=== PATIENT | female | born 1955 | race Caucasian/White ===

== ENCOUNTER → 2017-02-13 | Outpatient (CLI) | payer OTHER ==
[~2017-02-13] MED LIST: AMLO-110 PO; CALCTAB5 PO; CITRACEL PO; MULT-506 PO
[2017-02-13 13:05] LABS: HEMATOCRIT 45.9 % (37-47); MEAN CELL VOLUME 96.8 fL (80-100); MEAN CORPUSCULAR HEMOGLOBIN 31.6 pg (25-34); MEAN CORPUSCULAR HGB CONC 32.7 g/dl (32-36); MEAN PLATELET VOLUME 10.7 fL (7.4-10.4); PLATELET COUNT 258 K/uL (130-400); RED BLOOD COUNT 4.74 M/uL (4.2-5.4); WHITE BLOOD COUNT 7.84 K/uL (4.8-10.8)
[2017-02-13 13:22] LABS: BLOOD UREA NITROGEN 16 mg/dl (7-18); CALCIUM 9.1 mg/dl (8.5-10.1); CARBON DIOXIDE 27 mmol/L (21-32); CHLORIDE 104 mmol/L (98-107); CREATININE 0.97 mg/dl (0.60-1.20); GLUCOSE 86 mg/dl (70-99); POTASSIUM 4.2 mmol/L (3.5-5.1); SODIUM 137 mmol/L (136-145)
[2017-02-13 13:23] LABS: PHOSPHORUS 2.8 mg/dl (2.5-4.9)
[2017-02-13 13:38] LABS: URINE APPEARANCE CLEAR (CLEAR); URINE BILIRUBIN NEG (NEG); URINE COLOR YELLOW; URINE EPITHELIAL CELL AUTO 0-5 /lpf (0-5); URINE NITRITE NEG (NEG); URINE SPECIFIC GRAVITY 1.007 (1.000-1.030); UROBILINOGEN NEG (NEG)
[2017-02-13 13:39] LABS: MANUAL MICROSCOPIC REQUIRED? NO; REVIEW REQ? NO
[2017-02-13 14:09] LABS: URINE TOTAL PROTEIN < 5.0 mg/dl (0-11.9)
== END | disposition home or self-care (01) ==
LOC: C.LABMFLN 07:37
PROVIDERS: ATTEND Internal Medicine Nephrology
DX: N18.2 Chronic kidney disease, stage 2 (mild) (principal); I12.9 Hypertensive chronic kidney disease with stage 1 through stage 4 chronic kidney disease, or unspecified chronic kidney disease; E78.5 Hyperlipidemia, unspecified; I73.9 Peripheral vascular disease, unspecified; E55.9 Vitamin D deficiency, unspecified

== ENCOUNTER → 2017-09-23 | Outpatient (CLI) | payer OTHER ==
[2017-09-23 12:16] LABS: HEMATOCRIT 43.8 % (37-47); HEMOGLOBIN 15.4 g/dL (12.0-16.0); MEAN CELL VOLUME 98.6 fL (80-100); MEAN CORPUSCULAR HEMOGLOBIN 34.7 pg (25-34); MEAN CORPUSCULAR HGB CONC 35.2 g/dl (32-36); MEAN PLATELET VOLUME 10.8 fL (7.4-10.4); PLATELET COUNT 230 K/uL (130-400); RED CELL DISTRIBUTION WIDTH CV 13.4 % (11.5-14.5); RED CELL DISTRIBUTION WIDTH SD 47.9 fL (36.4-46.3); WHITE BLOOD COUNT 5.87 K/uL (4.8-10.8)
[2017-09-23 13:27] LABS: ALBUMIN 3.9 gm/dl (3.4-5.0); BLOOD UREA NITROGEN 16 mg/dl (7-18); CALCIUM 9.1 mg/dl (8.5-10.1); CARBON DIOXIDE 26 mmol/L (21-32); CREATININE 0.89 mg/dl (0.60-1.20); GLUCOSE 87 mg/dl (70-99); PHOSPHORUS 2.8 mg/dl (2.5-4.9); POTASSIUM 3.9 mmol/L (3.5-5.1); SODIUM 135 mmol/L (136-145)
== END | disposition home or self-care (01) ==
LOC: C.LABMFLN 08:00
PROVIDERS: ATTEND Internal Medicine Nephrology
DX: I12.9 Hypertensive chronic kidney disease with stage 1 through stage 4 chronic kidney disease, or unspecified chronic kidney disease (principal); N18.2 Chronic kidney disease, stage 2 (mild); I73.9 Peripheral vascular disease, unspecified; E55.9 Vitamin D deficiency, unspecified

== ENCOUNTER → 2018-03-28 | Outpatient (CLI) | payer OTHER ==
[~2018-03-28] MED LIST changes: -AMLO-110 PO; +AMLO5TAB3 PO
[2018-03-28 13:34] LABS: HEMATOCRIT 44.4 % (37-47); MEAN CELL VOLUME 97.6 fL (80-100); MEAN CORPUSCULAR HGB CONC 33.8 g/dl (32-36); MEAN PLATELET VOLUME 11.3 fL (7.4-10.4); PLATELET COUNT 234 K/uL (130-400); RED CELL DISTRIBUTION WIDTH CV 13.4 % (11.5-14.5); RED CELL DISTRIBUTION WIDTH SD 47.6 fL (36.4-46.3)
[2018-03-28 14:01] LABS: ALKALINE PHOSPHATASE 69 U/L (45-117); ALT/SGPT 23 U/L (12-78); AST/SGOT 21 U/L (15-37); BLOOD UREA NITROGEN 14 mg/dl (7-18); CALCIUM 9.1 mg/dl (8.5-10.1); CARBON DIOXIDE 25 mmol/L (21-32); CHOLESTEROL 153 mg/dl (0-200); CREATININE 0.94 mg/dl (0.60-1.20); GLUCOSE 93 mg/dl (70-99); LDL CHOLESTEROL CALCULATED 89 mg/dl; POTASSIUM 4.1 mmol/L (3.5-5.1); SODIUM 134 mmol/L (136-145); TOTAL PROTEIN 8.1 gm/dl (6.4-8.2)
== END | disposition home or self-care (01) ==
LOC: C.LABMFLN 09:02
PROVIDERS: ATTEND Internal Medicine Nephrology
DX: I12.9 Hypertensive chronic kidney disease with stage 1 through stage 4 chronic kidney disease, or unspecified chronic kidney disease (principal); I73.9 Peripheral vascular disease, unspecified; N18.2 Chronic kidney disease, stage 2 (mild); E55.9 Vitamin D deficiency, unspecified; E78.5 Hyperlipidemia, unspecified

== ENCOUNTER 2020-07-13 06:12 | Inpatient (IN) ==
--- NOTE | 2020-07-04 14:41 | PAT Medication Instructions ---
Medication Instructions Date of Service July 04, 2020 Home Medications diphenhydramine 25 mg-acetaminophen 500 mg tablet 2 tab PO HS amlodipine 10 mg PO QAM calcium carbonate [Calcium 600] 600 mg PO QAM multivitamin [Daily Multi-Vitamin] 1 tab PO QAM polyethylene glycol 3350 17 gm PO DAILY PRN simvastatin 20 mg PO PM DO NOT take the morning of surgery calcium carbonate [Calcium 600] 600 mg PO QAM multivitamin [Daily Multi-Vitamin] 1 tab PO QAM polyethylene glycol 3350 17 gm PO DAILY PRN Take morning of surgery With a small sip of water, OTHERWISE NOTHING TO EAT OR DRINK AFTER MIDNIGHT: amlodipine 10 mg PO QAM Take evening before surgery diphenhydramine 25 mg-acetaminophen 500 mg tablet 2 tab PO HS polyethylene glycol 3350 17 gm PO DAILY PRN (if needed) simvastatin 20 mg PO PM Other Notes If you have any questions please call us at [phone] or [phone] or [phone] or [phone]
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
[2020-07-06 10:36] LABS: Basophils # (auto) 0.03 K/uL (0-0.2); Basophils % (auto) 0.4 %; Eosinophils # (auto) 0.15 K/uL (0-0.5); Eosinophils % (auto) 2.2 %; Hematocrit (blood only) 42.9 % (37-47); Hemoglobin 14.4 g/dL (12.0-16.0); Immature Granulocytes # (auto) 0.01 K/uL (0.00-0.02); Immature Granulocytes % (auto) 0.1 %; Lymphocytes # (auto) 1.27 K/uL (1.2-3.4); Lymphocytes % (auto) 18.8 %; Mean Corpuscular Hemoglobin 33.3 pg (25-34); Mean Corpuscular Hgb Conc 33.6 g/dL (32-36); Mean Corpuscular Volume 99.1 fL (80-100); Mean Platelet Volume 10.6 fL (7.4-10.4); Monocytes # (auto) 0.35 K/uL (0.11-0.59); Monocytes % (auto) 5.2 %; Neutrophils # (auto) 4.94 K/uL (1.4-6.5); Neutrophils % (auto) 73.3 %; Platelet Count 282 K/uL (130-400); RDW Coefficient of Variation 13.6 % (11.5-14.5); RDW Standard Deviation 49.1 fL (36.4-46.3); Red Blood Count 4.33 M/uL (4.2-5.4); White Blood Count 6.75 K/uL (4.8-10.8)
[2020-07-06 10:44] LABS: BUN Creatinine Ratio 13.2 (10-20); Calcium 9.2 mg/dl (8.5-10.1); Creatinine Clr Calc Pharmacy 59.1 ml/min; Est GFR (African American) 70.3; Est GFR (Non-African American) 60.6; Potassium 4.1 mmol/L (3.5-5.1)
[2020-07-06 10:49] LABS: Partial Thromboplastin Time 26.8 Seconds (21.0-31.0); Prothrombin Time 10.8 Seconds (9.0-12.0)
--- NOTE | 2020-07-06 21:32 | Electrocardiogram Report ---
Test Reason : Blood Pressure : / mmHG Vent. Rate : 084 BPM Atrial Rate : 084 BPM P-R Int : 150 ms QRS Dur : 126 ms QT Int : 404 ms P-R-T Axes : 082 051 046 degrees QTc Int : 477 ms Normal sinus rhythm Right atrial enlargement Right bundle branch block Abnormal ECG When compared with ECG of 20-MAR-2011 10:19, QT has lengthened Confirmed by Cr Lama ([id number]) on 07/06/2020 9:32:15 PM Referred By: Lee Gramajo Confirmed By:Cr Lama
[~2020-07-13 06:12] MED LIST changes: -AMLO5TAB3 PO; -CALCTAB5 PO; -CITRACEL PO; -MULT-506 PO; +SODIUM CHLORIDE 0.9% 1000ML IV SCH; +ceFAZolin 1000MG 1,000 MG/7.5 ML SYR IV SCH
[2020-07-13] MEDS ORDERED: ATROPINE SULFATE 0.1 MG/ML 10ML SYR IV PRN (07:01)
[2020-07-13] MEDS ORDERED: ONDANSETRON INJ 2 MG/ML 2 ML VIAL IV PRN ×2 (07:01→09:50)
[2020-07-13] MEDS ORDERED: ePHEDrine sulfate 50 MG/ML AMP IV PRN (07:01)
[2020-07-13] MEDS ORDERED: MIDAZOLAM HCL 1 MG/ML 2ML VIAL ONE (07:10)
[2020-07-13] MEDS ORDERED: fentaNYL citrate 100 MCG/2 ML VIAL ONE ×5 (07:10→11:47)
[2020-07-13 07:56] LABS: BUN Creatinine Ratio 15.5 (10-20); Calcium 9.6 mg/dl (8.5-10.1); Creatinine Clr Calc Pharmacy 50.2 ml/min; Est GFR (African American) 70.3; Est GFR (Non-African American) 60.6; Potassium 3.9 mmol/L (3.5-5.1)
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
[2020-07-13] MEDS ORDERED: LIDOCAINE HCL 2% 2 ML VIAL/AMP(20MG/ML) INFIL ONE (08:17)
[2020-07-13] MEDS ORDERED: PROPOFOL IV EMULSION 10 MG/ML 20 ML VIAL IV ONE (08:55)
[2020-07-13] MEDS ORDERED: ROCURONIUM BROMIDE 10 MG/ML 5 ML VIAL IV ONE (08:55)
[2020-07-13] MEDS ORDERED: ePHEDrine sulfate 50 MG/ML SYR ONE (08:55)
[2020-07-13] MEDS ORDERED: ONDANSETRON INJ 2 MG/ML 2 ML VIAL ONE (08:55)
[2020-07-13] MEDS ORDERED: LARYING-O-JET KIT (LTA) ONE (08:55)
[2020-07-13] MEDS ORDERED: HEPARIN SOD (PORCINE) 1000 UNIT/ML 10 ML VIAL ONE ×2 (08:58→11:17)
[2020-07-13] MEDS ORDERED: PROTAMINE SULFATE 10 MG/ML 5 ML VIAL ONE (09:40)
[2020-07-13] MEDS ORDERED: ARISTA ABSORBABLE HEMOSTAT 3GM TOP ONE (09:47)
[2020-07-13] MEDS ORDERED: VISIPAQUE IV PRN (09:47)
[2020-07-13] MEDS ORDERED: GLYCOPYRROLATE 0.2 MG/ML VIAL ONE (09:49)
[2020-07-13] MEDS ORDERED: NEOSTIGMINE METHYLSULFATE 5 MG/5 ML SYR ONE (09:49)
[2020-07-13] MEDS ORDERED: MoRPHine SULFATE 4 MG/ML 1 ML CARP\\VIAL IV PRN (09:50)
[2020-07-13] MEDS ORDERED: THROMBIN 5000 UNITS KIT ONE ×2 (10:03→10:14)
[2020-07-13] MEDS ORDERED: HEPARIN (PORCINE) 1000 UNIT/ML 10 ML (CATH LAB USE ONLY) ONE (10:03)
[2020-07-13] MEDS ORDERED: GELATIN SPONGE SZ 100 ONE (10:03)
[2020-07-13] MEDS ORDERED: POLYETHYLENE (MIRALAX) 17 GM PACK PO PRN (10:04)
[2020-07-13] MEDS ORDERED: VISIPAQUE IV ONE (11:40)
--- NOTE | 2020-07-13 12:00 | Procedure Note ---
Angiogram Post Procedure Fluoroscopy Time (minutes): 10.5 Conscious Sedation Time (minutes): 0 Radiation (mGy): 231 Contrast: 195 Post Operative Report Pre & Post Diagnosis Operation Date: 07/13/20 08:00 Pre-Op Diagnosis: abdominal aortic aneurysm Post-Op Diagnosis: abdominal aortic aneurysm I identified the patient and participated in the time-out.: Yes Procedure Operation Date: 07/13/20 08:00 Actual Procedures p Percutaneous Endovascular Aortic Aneurysm Repair, Bilateral Percutaneous Femoral Access, Mechanical Closure Bilateral Femoral Arteries(Bilateral) - Lee Gramajo MD s Right Fermoral Artery Cut Down, Right Common and Superficial Femoral Endarterectomy with Bovine Patch, Right Lower Extremity Arteriogram, Percutaneous Transluminal Angioplasty and Stenting of right Superficial Femoral Artery(Right) - Lee Gramajo MD Surgeon Lee Gramajo MD Train Gateman Robinson,PAC Estimated Blood Loss 200 Findings Consistent with Post-Op Diagnosis Specimens none Anesthesia Type General Complications none Indications This is a 64-year-old female who we have been following for abdominal aortic aneurysm. The aneurysm enlarged to over 5 [address] size[address] On [address] scan was 5.3 cm. She has a lung CA which needs to be treated. It was elected to do the aneurysm first. She was a candidate for an endovascular repair. I have discussed the risks options and benefits of the procedure with the patient. The patient understands the risks options and benefits and agrees to the procedure. Description of Procedure The patient was taken to the operating room. After general anesthesia was accomplished, the abdomen and groins were prepped and draped in the usual fashion. A timeout was performed and the patient identified. Percutaneous access of the femoral arteries was then accomplished. The right groin was done first. The femoral artery was punctured and a 5Fr sheath inserted. Hand injec tion was then done to determine the position of the puncture. The puncture was in the common femoral artery. We therefore placed two ProGlide sutures and steri stripped them to the drapes. Once done an 8Fr sheath was then inserted. On the left side, the femoral artery was punctured and a 5Fr sheath inserted. Hand injection was then done to determine the position of the puncture. The puncture was in the common femoral artery. We therefore placed two ProGlide sutures and steri stripped them to the drapes. Once done an 8Fr sheath was then inserted. An 035 glidewire was then inserted and passed into the suprarenal aorta. A Kumpe catheter was then inserted of the wire and the wire exchanged to a Emely wire. Patient was heparinized at that time. The catheter was removed and the 8Fr sheath upsized to a 12Fr dry seal sheath. On the right side, an 035 glidewire was then inserted and passed into the suprarenal aorta. A Kumpe catheter was then inserted of the wire and the wire exchanged to a Maya wire. The catheter was removed and the 8Fr sheath upsized to an 18Fr dry seal sheath. A pigtail was inserted to the suprarenal aorta on the left side and the wire removed. A 28.5x14.5x14 excluder was inserted over the wire in the right groin. An aortogram was then done marking the renal arteries. The graft was then deployed below the renals. Another injection was done showing the graft to be just below the renals. The pigtail was pulled down into the sac and the hooks of the graft were then deployed. The pigtail was exchanged to a Kumpe catheter and the gate was cannulated. The pigtail was reinserted and the 12Fr sheath pulled down into the pelvis. Hand injection showed the origin of the internal iliac artery. It was decided we would use a 16x14.5x10 contralateral limb. The Maya wire was reinserted as well as the 12Fr dilator. This sheath was then advanced into the gate. These 16 x 14.5 x 10 contralateral limb was then inserted. The 12 Luxembourger sheath was pulled back below the contralateral limb. The contralateral limb was deployed without difficulty. The 18Fr sheath was then pulled down into the pelvis and a hand injection done to carrillo the origin of the right internal iliac artery. The ipsilateral limb was then deployed without difficulty pushing up slightly to get the end of the graft just above the internal iliac artery origin. The Q50 balloon was then inserted on the left side and all attachment sites and overlaps were then ballooned. The balloon was then removed and the same done on the right. The pigtail was reinserted on the left side and placed above the graft. An injection was then done. There was a small type II endoleak present. No type I endoleak's were noted. At this point the Maya wire was reinserted and the pigtail removed. We then pulled the 12Fr sheath and secured the ProGlide sutures. Adequate hemostasis was seen. We then pulled the 18Fr sheath and secured the ProGlide sutures. Adequate hemostasis was noted on this side also. Wallace powder was inserted into the stab wounds and pressure applied. Adequate hemostasis was still noted. Sterile dressings were applied to the wounds. Once the drapes were removed it was noted that the right foot was pale. Cannot hear any Doppler signals in the foot. It was decided to open the right groin to explore the artery. The right groin was reprepped and draped in a sterile manner. Patient was identified and timeout was performed. Incision was then made in the right groin longitudinally. The common femoral artery was exposed from the inguinal ligament down to the profunda and approximately 5 cm onto the superficial femoral artery. There was no pulse felt in the common femoral artery beyond the proximal portion. Patient was reheparinized at that time. The common femoral area was clamped at the level inguinal ligament. Fistula profundofemoral arteries were also clamped. Longitudinal arteriotomy was started at the puncture site. It was carried upward and downward on the common femoral artery. On inspection there was a moderate amount of hyperplasia present in the common femoral artery. It appeared that the flap had developed in the subintimal hematoma was created causing occlusion of the femoral artery. The hyperplasia was then excised in that area removing the hematoma. The artery was clamped slightly higher under the inguinal ligament. The arteriotomy was extended upward to beyond where the hyperplasia was present. Hyperplasia was then endarterectomized down through the proximal superficial femoral artery. Good inflow was seen. Good backbleeding was noted in the profundofemoral artery We attempted to pass a Juan down the superficial femoral artery. This would not pass further than a couple centimeters downward. It was decided to patch the common femoral artery proximal superficial femoral artery and into an arteriogram to see what the occlusion was caused by. Using a bovine patch and angioplasty was performed of the common femoral artery and proximal superficial femoral artery. This was sewn in place with a 6-0 Prolene suture. Clamps were then removed. There is excellent flow through the profunda. There is no appreciable flow noted through the distal superficial femoral artery. Using entrance needle the bovine patch was punctured just below the profundofemoral artery origin and a 5 Luxembourger sheath inserted. Hand-injection done at that level showed occlusion of the superficial femoral artery just beyond the patch. It reconstituted just above the adductor hiatus. We then passed an 035 wire down through the sheath at the superficial femoral artery. It appeared to reenter the superficial femoral artery at the adductor hiatus. A quick cross was inserted over the wire. This was passed down just below the adductor hiatus. Hand-injection done at that level showed the catheter to be true lumen. It was decided to stent this lesion due to the hyperplasia in the subintimal flap that developed. We switched to a 035 wire to an 018 wire and then remove the quick cross. We then switched out the 5 Luxembourger sheath a 6 Luxembourger sheath. We then inserted a 6 x 15 Viabahn stent. We deployed it just distal to the end of the bovine patch and extended downward. At this was done another hand-injection was performed which still showed a suspicious area of flap and narrowing just above the adductor hiatus. We then extended the Viabahn with a 6 x 10 Viabahn to cover this area. The stent was then ballooned with a 6 x 120 [place] balloon. Completion angios done at that time showed excellent flow through the superficial femoral artery with no residual stenosis and no flaps noted. Sheath and wire were then removed. The puncture site was closed with a interrupted 6-0 Prolene sutures. Adequate hemostasis was noted the groin was then closed with a running 2-0 Vicryl suture for the femoral sheath and a 3-0 Vicryl suture for subcutaneous layer. Tito were used to approximate the skin edges. Sterile dressings were applied to the wounds.The patient left the operation room in satisfactory condition and tolerated the procedure well. All needle and sponge counts were correct at the end of the procedure. Alyce Stark Pac assisted due to lack of resident availability and was necessary for positioning, draping, retraction, wound closure deep layers, subcutaneous tissue, and skin closure and was necessary for assisting with the case. I attest to the content of the Intraoperative Record and any orders documented therein. Any exceptions are noted below.
--- NOTE | 2020-07-13 12:19 | Anesthesiology Progress Note ---
Date of Service July 13, 2020 Anesthesia Post Procedure Vital Signs Vital Signs: Temp Pulse Resp BP BP Pulse Ox 07/13/20 06:55 98.1 F 96 H 20 136/81 136/70 94 Transfer of Care Handoff Completed per policy Notes Mental Status: alert / awake / arousable and participated in evaluation Patient Amnestic to Procedure: Yes Nausea / Vomiting: adequately controlled Pain: adequately controlled Airway Patency, RR, SpO2: stable & adequate BP & HR: stable & adequate Hydration State: stable & adequate Anesthetic Complications: no major complications apparent and Pt Satisfied with anesthetic care
[2020-07-13] MEDS: fentaNYL citrate 100 MCG/2 ML VIAL IV PRN ×4 (12:31→12:46)
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
[2020-07-13 14:23] LABS: Basophils # (auto) 0.02 K/uL (0-0.2); Basophils % (auto) 0.2 %; Eosinophils # (auto) 0.04 K/uL (0-0.5); Eosinophils % (auto) 0.3 %; Hematocrit (blood only) 37.2 % (37-47); Hemoglobin 12.3 g/dL (12.0-16.0); Immature Granulocytes # (auto) 0.02 K/uL (0.00-0.02); Immature Granulocytes % (auto) 0.2 %; Lymphocytes # (auto) 0.78 K/uL (1.2-3.4); Lymphocytes % (auto) 6.7 %; Mean Corpuscular Hemoglobin 32.8 pg (25-34); Mean Corpuscular Volume 99.2 fL (80-100); Mean Platelet Volume 9.5 fL (7.4-10.4); Monocytes # (auto) 0.65 K/uL (0.11-0.59); Monocytes % (auto) 5.6 %; Neutrophils # (auto) 10.05 K/uL (1.4-6.5); Platelet Count 227 K/uL (130-400); RDW Coefficient of Variation 13.7 % (11.5-14.5); RDW Standard Deviation 49.8 fL (36.4-46.3); Red Blood Count 3.75 M/uL (4.2-5.4); White Blood Count 11.56 K/uL (4.8-10.8)
[2020-07-13] MEDS: D5W AND 1/2NSS 1,000 ML IV SCH ×2 (14:28→21:53)
[2020-07-13 14:37] LABS: Calcium 8.5 mg/dl (8.5-10.1); Creatinine Clr Calc Pharmacy 45.6 ml/min; Est GFR (African American) 62.6; Potassium 3.9 mmol/L (3.5-5.1)
[2020-07-13 14:43] LABS: Mean Corpuscular Hgb Conc 33.1 g/dL (32-36)
[2020-07-13] MEDS: PANTOprazole 40 MG in SYRINGE 0 ML IV SCH (17:22)
[2020-07-13] MEDS: ceFAZolin 1000MG 1,000 MG/7.5 ML SYR IV SCH (20:27)
[2020-07-13] MEDS: SIMVASTATIN 20 MG TAB PO SCH (20:29)
[2020-07-13] MEDS: diphenhydrAMINE Capsule 25 MG CAP PO SCH (20:29)
[2020-07-13] MEDS ORDERED: ACETAMINOPHEN 500 MG TAB PO SCH (21:00)
[2020-07-13] MEDS ORDERED: DIPHENHYDRAMINE ACETAMINOPHEN PO SCH (21:00)
[2020-07-14] MEDS: ceFAZolin 1000MG 1,000 MG/7.5 ML SYR IV SCH (03:27)
[2020-07-14] MEDS: oxyCODONE/ACETAMINOPHEN 5mg/325mg TAB PO PRN ×3 (03:39→23:52)
[2020-07-14 05:07] LABS: Basophils # (auto) 0.01 K/uL (0-0.2); Basophils % (auto) 0.1 %; Eosinophils # (auto) 0.07 K/uL (0-0.5); Eosinophils % (auto) 0.9 %; Hematocrit (blood only) 32.2 % (37-47); Hemoglobin 10.8 g/dL (12.0-16.0); Immature Granulocytes # (auto) 0.01 K/uL (0.00-0.02); Immature Granulocytes % (auto) 0.1 %; Lymphocytes # (auto) 0.72 K/uL (1.2-3.4); Lymphocytes % (auto) 8.9 %; Mean Corpuscular Hemoglobin 33.2 pg (25-34); Mean Corpuscular Hgb Conc 33.5 g/dL (32-36); Mean Corpuscular Volume 99.1 fL (80-100); Mean Platelet Volume 9.6 fL (7.4-10.4); Monocytes # (auto) 0.73 K/uL (0.11-0.59); Neutrophils # (auto) 6.57 K/uL (1.4-6.5); Platelet Count 195 K/uL (130-400); RDW Coefficient of Variation 13.6 % (11.5-14.5); RDW Standard Deviation 49.7 fL (36.4-46.3); Red Blood Count 3.25 M/uL (4.2-5.4); White Blood Count 8.11 K/uL (4.8-10.8)
[2020-07-14] MEDS: D5W AND 1/2NSS 1,000 ML IV SCH (05:56)
[2020-07-14] MEDS: POTASSIUM CHLORIDE / WTR 10 MEQ/100 ML PLCT IV SCH ×3 (06:17→23:24)
[2020-07-14] MEDS: MULTIVITAMIN TAB PO SCH (07:37)
[2020-07-14] MEDS: CALCIUM CARBONATE 1250MG TAB PO SCH (07:37)
[2020-07-14] MEDS: amLODIPine BESYLATE 5 MG TAB PO SCH (07:37)
[2020-07-14 07:42] LABS: Potassium 3.9 mmol/L (3.5-5.1)
[2020-07-14 07:44] LABS: Anion Gap 3.7 (3-11)
[2020-07-14 07:46] LABS: Est GFR (Non-African American) 62.2
[2020-07-14 07:47] LABS: BUN Creatinine Ratio 8.6 (10-20); Creatinine Clr Calc Pharmacy 51.3 ml/min
[2020-07-14 07:48] LABS: Calcium 8.1 mg/dl (8.5-10.1)
[2020-07-14] MEDS ORDERED: Nursing to Pharmacy Communication SCH (09:30)
--- NOTE | 2020-07-14 10:00 | Critical Care Progress Note ---
Date of Service July 14, 2020 Assessment & Plan (1) AAA (abdominal aortic aneurysm) without rupture: She is postop endovascular aneurysm repair. Blood pressure goals and pain management per vascular surgery. Peripheral pulses appear intact. ICU team is available should the need arise and we appreciate the ability to be able to participate in the care of this patient. She does have a history of biopsy- proven left upper lobe lung cancer and apparently is going to undergo a mediastinoscopy and left upper lobectomy in the near future by thoracic surgery at at [facility]. Complete smoking cessation is advised. May need PT/OT. Disp per vascular surgery. (2) Cavitating mass in left upper lung lobe: (3) Non-small cell cancer of left lung: (4) Chronic kidney disease, stage 3: (5) Renal artery stenosis: Admission and Anticipated Discharge Date Admission Date: July 13, 2020 Subjective Mild right foot pain. Somewhat unsteady on her feet. Mild abdominal discomfort. Denies chest pain. No n/v. Review of Systems Review of Systems: All systems reviewed & are unremarkable except as noted in HPI & below Physical Exam Constitutional: WD/WN, vitals as above Eyes: PERRL, conjunctivae normal, anicteric sclerae ENMT: external ear and nose normal, oropharynx normal Neck: trachea midline, no thyromegaly Respiratory: normal respiratory effort, lungs clear to auscultation Cardiovascular: RRR, no murmur, no edema Vessels: dorsalis pedis pulses present Gastrointestinal (Abdomen): normal bowel sounds, soft, nontender, no hepatosplenomegaly Musculoskeletal: no cyanosis or clubbing, extremities motor strength 5/5 Skin: no rashes, warm and dry Neurologic: PERRL, EOMI, accommodation nl, no face palsy, no dysarthria Psychiatric: A+Ox3, euthymic affect Results & Data Results & Data ([facility]) Vital Signs (Past 12 Hours) Vital Signs Temp Pulse Resp BP Pulse Ox 07/14/20 09:01 105 H 23 167/71 H 93 07/14/20 08:01 88 18 94 07/14/20 08:00 98.6 F 90 23 142/69 H 94 07/14/20 07:01 88 19 93 07/14/20 07:00 89 18 129/81 93 07/14/20 06:00 70 16 139/55 L 97 07/14/20 05:30 79 19 97 07/14/20 05:00 72 16 134/50 L 95 07/14/20 04:30 72 17 95 07/14/20 04:00 98.6 F 83 12 148/63 H 96 07/14/20 03:30 86 17 98 07/14/20 03:00 76 16 134/54 L 96 07/14/20 02:30 75 19 97 07/14/20 02:00 76 15 146/51 H 97 07/14/20 01:31 73 15 97 07/14/20 01:00 74 16 128/55 L 97 07/14/20 00:00 98.6 F 78 21 122/57 L 98 07/13/20 23:00 77 17 131/66 99 07/13/20 22:30 75 18 100 07/13/20 22:02 72 15 99 07/13/20 22:00 73 16 142/66 H 100 I reviewed vital signs, labs and imaging Coding Level of Care Code 44864 Subseq Hosp Care Lvl 2 Diagnoses AAA (abdominal aortic aneurysm) without rupture I71.4 Cavitating mass in left upper lung lobe J98.4 Non-small cell cancer of left lung C34.92 Chronic kidney disease, stage 3 N18.3 Renal artery stenosis I70.1
--- NOTE | 2020-07-14 13:38 | Surgery Progress Note ---
Date of Service July 14, 2020 Assessment & Plan (1) Hx of endovascular stent graft for abdominal aortic aneurysm: Patient post op day #1 from PEVAR. Doing well. Will transfer to floor. Admission and Anticipated Discharge Date Admission Date: July 13, 2020 Subjective Patient complaining of right groin and thigh pain. No foot pain. Physical Exam Constitutional: WD/WN, vitals as above Respiratory: normal respiratory effort; no respiratory distress Cardiovascular: Vessels: dorsalis pedis pulses present (palpable both feet) Extremities: normal capillary refill Skin: + incision (dressing dry and intact, no swelling present) Neurologic: moves all extremities; no focal motor deficits Results & Data ([facility]) Vital Signs (Past 12 Hours) Vital Signs Temp Pulse Resp BP Pulse Ox 07/14/20 11:00 36.8 C 79 12 153/55 H 95 07/14/20 10:02 108 H 28 H 194/64 H 95 07/14/20 10:00 98 H 23 95 07/14/20 09:01 105 H 23 167/71 H 93 07/14/20 08:01 88 18 94 07/14/20 08:00 37 C 90 23 142/69 H 94 07/14/20 07:01 88 19 93 07/14/20 07:00 89 18 129/81 93 07/14/20 06:00 70 16 139/55 L 97 07/14/20 05:30 79 19 97 07/14/20 05:00 72 16 134/50 L 95 07/14/20 04:30 72 17 95 07/14/20 04:00 37 C 83 12 148/63 H 96 07/14/20 03:30 86 17 98 07/14/20 03:00 76 16 134/54 L 96 07/14/20 02:30 75 19 97 07/14/20 02:00 76 15 146/51 H 97
[2020-07-14] MEDS: PANTOprazole 40 MG in SYRINGE 0 ML IV SCH (13:53)
[2020-07-14] MEDS: diphenhydrAMINE Capsule 25 MG CAP PO SCH (20:58)
[2020-07-14] MEDS: SIMVASTATIN 20 MG TAB PO SCH (20:58)
[2020-07-15] MEDS: oxyCODONE/ACETAMINOPHEN 5mg/325mg TAB PO PRN ×2 (05:34→10:33)
[2020-07-15 07:16] LABS: Basophils # (auto) 0.02 K/uL (0-0.2); Basophils % (auto) 0.2 %; Eosinophils # (auto) 0.13 K/uL (0-0.5); Eosinophils % (auto) 1.4 %; Hematocrit (blood only) 30.4 % (37-47); Hemoglobin 10.3 g/dL (12.0-16.0); Immature Granulocytes # (auto) 0.02 K/uL (0.00-0.02); Immature Granulocytes % (auto) 0.2 %; Lymphocytes # (auto) 0.95 K/uL (1.2-3.4); Lymphocytes % (auto) 10.2 %; Mean Corpuscular Hemoglobin 33.1 pg (25-34); Mean Corpuscular Hgb Conc 33.9 g/dL (32-36); Mean Corpuscular Volume 97.7 fL (80-100); Mean Platelet Volume 9.3 fL (7.4-10.4); Monocytes # (auto) 1.04 K/uL (0.11-0.59); Monocytes % (auto) 11.2 %; Neutrophils # (auto) 7.13 K/uL (1.4-6.5); Neutrophils % (auto) 76.8 %; Platelet Count 170 K/uL (130-400); RDW Coefficient of Variation 13.5 % (11.5-14.5); RDW Standard Deviation 48.2 fL (36.4-46.3); Red Blood Count 3.11 M/uL (4.2-5.4); White Blood Count 9.29 K/uL (4.8-10.8)
[2020-07-15 07:52] LABS: BUN Creatinine Ratio 11.1 (10-20); Calcium 8.5 mg/dl (8.5-10.1); Creatinine Clr Calc Pharmacy 52.3 ml/min; Est GFR (African American) 73.9; Est GFR (Non-African American) 63.7
[2020-07-15] MEDS: MULTIVITAMIN TAB PO SCH (08:36)
[2020-07-15] MEDS: CALCIUM CARBONATE 1250MG TAB PO SCH (08:36)
[2020-07-15] MEDS: amLODIPine BESYLATE 5 MG TAB PO SCH (08:37)
--- NOTE | 2020-07-15 09:35 | Surgery Progress Note ---
Date of Service July 15, 2020 Assessment & Plan (1) Hx of endovascular stent graft for abdominal aortic aneurysm: Patient post op day #2 from PEVAR. Doing well. Pt discussed with Dr Gramajo, will d/c home today. Admission and Anticipated Discharge Date Admission Date: July 13, 2020 Subjective 64 yo f POD #2 after PEVAR and subsequent R groin cutdown d/t acute arterial occlusion of RLE with common femoral endarterectomy with bovine patch and stenting of SFA, seen in f/u today. Pt states feeling ok today. Admits R groin discomfort, but states much better with pain meds. Ambulating in room more today, groin is sore, but she feels stable. Passing flatus. Denies any other new complaints. Review of Systems Review of Systems: All systems reviewed & are unremarkable except as noted in HPI & below Physical Exam Constitutional: WD/WN, vitals as above Neck: trachea midline Respiratory: normal respiratory effort; no respiratory distress Cardiovascular: Rate/Rhythm: regular rate and regular rhythm Vessels: normal peripheral pulses and dorsalis pedis pulses present (palpable both feet); no carotid bruit Extremities: normal capillary refill Gastrointestinal (Abdomen): Inspection/Auscultation: abdomen normal to inspection Percussion/Palpation: abdomen soft; abdomen nontender Musculoskeletal: no cyanosis or clubbing, extremities motor strength 5/5 Skin: no rashes, warm and dry + incision (dressing dry and intact, no swelling present) Neurologic: patellar DTR's 2+ bilat, sensation intact and PERRL, EOMI, accommodation nl, no face palsy, no dysarthria moves all extremities; no focal motor deficits Psychiatric: A+Ox3, euthymic affect Results & Data ([facility]) Vital Signs (Past 12 Hours) Vital Signs Temp Pulse Pulse Resp BP BP Pulse Ox 07/15/20 08:33 78 156/81 H 07/15/20 08:05 37.3 C 07/15/20 07:38 37.6 C H 87 16 145/77 H 96 07/14/20 23:05 37.5 C 93 H 19 130/69 94
--- NOTE | 2020-07-15 09:39 | Discharge Summary ---
Date of Service July 15, 2020 Admission HPI Per Admitting Provider Camryn was seen for follow-up of her abdominal aortic aneurysm and renal artery stents. She did say today that she has been diagnosed as having a left upper lobe lung carcinoma which is being worked up at this time. We have been seeing her for abdominal aortic aneurysm over the last few years. At her last visit has grown slightly in size to 4.6. She did have an ultrasound done prior to this visit which shows aneurysm to have grown to 5.3 cm in size. It is slightly over [address] size on CT angiogram but is amenable to endovascular repair. Denies any claudication. Due to size of her AAA, recommended PEVAR. Risks, benefits, and alternatives were discussed with pt. Pt was agreeable to proceed. Admission Exam Per Admitting Provider Constitutional: WD/WN, vitals as above Neck: trachea midline Cardiovascular: Rate/Rhythm: regular rate and regular rhythm Vessels: normal peripheral pulses; no carotid bruit Extremities: normal capillary refill Gastrointestinal (Abdomen): Inspection/Auscultation: abdomen normal to inspection Percussion/Palpation: abdomen soft; abdomen nontender Musculoskeletal: no cyanosis or clubbing, extremities motor strength 5/5 Skin: no rashes, warm and dry Neurologic: patellar DTR's 2+ bilat, sensation intact and PERRL, EOMI, accommodation nl, no face palsy, no dysarthria Psychiatric: A+Ox3, euthymic affect Principal Diagnosis 1. s/p PEVAR 2. s/p R common femoral and SFA endarterectomy with bovine patch and RLE angio with stenting of SFA 3. AAA Discharge Exam Constitutional WD/WN, vitals as above Neck trachea midline Respiratory normal respiratory effort; no respiratory distress Cardiovascular Rate/Rhythm: regular rate and regular rhythm Vessels: normal peripheral pulses and dorsalis pedis pulses present (palpable both feet); no carotid bruit Extremities: normal capillary refill Gastrointestinal (Abdomen) Inspection/Auscultation: abdomen normal to inspection Percussion/Palpation: abdomen soft; abdomen nontender Musculoskeletal no cyanosis or clubbing, extremities motor strength 5/5 Skin no rashes, warm and dry + incision (dressing dry and intact, no swelling present) Neurologic patellar DTR's 2+ bilat, sensation intact and PERRL, EOMI, accommodation nl, no face palsy, no dysarthria moves all extremities; no focal motor deficits Psychiatric A+Ox3, euthymic affect Discharge Data Allergies Allergy/AdvReac Type Severity Reaction Status Date / Time latex Allergy Unknown skin Verified 07/13/20 06:45 irritation nickel Allergy Unknown rash, Verified 07/13/20 06:45 localized swelling buspirone [From BuSpar] Allergy Swelling Verified 07/13/20 06:45 of Lip/Tongue/Throat Corticosteroids AdvReac Unknown Agitation Verified 07/13/20 06:45 (Glucocorticoids) morphine AdvReac Hallucinati Verified 07/13/20 06:45 ons Consultations 07/13/20 09:58 Consult Solar Project Coordination Specialist Routine Procedures Performed Operation Date: 07/13/20 08:00 Actual Procedures s Percutaneous Endovascular Aortic Aneurysm Repair, Bilateral Percutaneous Femoral Access, Mechanical Closure Bilateral Femoral Arteries(Bilateral) - Lee Gramajo MD p Right Fermoral Artery Cut Down, Right Common and Superficial Femoral Endarterectomy with Bovine Patch, Percutaneous Transluminal Angioplasty and Stenting of right Superficial Femoral Artery(Right) - Lee Gramajo MD Ordered Studies 07/13/20 07:00 US - OR guided needle placemen Stat 07/13/20 07:16 EV AAA repair aorta only Routine 07/13/20 10:36 EV angio LE RT Routine Hospital Course (1) Hx of endovascular stent graft for abdominal aortic aneurysm: Patient post op day #2 from PEVAR. Doing well. Pt discussed with richard Stacy d/c home today. Total Time Total Time Spent Total Time Spent (In Minutes): 0 Discharge Plan Discharge Items Patient Disposition: Home - Self-Care Reason For Visit: AAA Discharge Diagnosis: 1. s/p percutaneous endovascular aneurysm repair 2. s/p Right groin cutdown with common femoral and superficial femoral artery endarterectomy with bovine patch and angiography with stenting of superficial femoral artery 3. Abdominal Aortic Aneurysm Condition on Discharge: Good Activity: Per Instructions section Non-emergency contact: Primary Care Provider and Surgeon Call non-emergency contact if: you have any medication questions, your pain is not controlled, your pain is concerning for you, you have a fever, your temperature is above 101, your wound has increased redness and your wound has increased drainage Follow-up/Referrals: Castillo Jeffery DO [Primary Care Provider] - Lee Gramajo MD [Physician] - (2 weeks for staple removal) Diet: Heart Healthy Addtl Attending Provider Instructions: SPECIAL CARE INSTRUCTIONS: Medications: * Continue to take your medications as directed. Incision/Puncture Site Care: * You will have an incision or puncture in each of your groins. Liquid glue will be used to seal your incisions/puncture site. This will lift off as the incisions/puncture sites heal. * If Liquid glue is not used, there will be small dressings covering your incisions. After you get home, you may remove the dressings and shower - allo wing the warm soapy water to run over it. * Be sure to dry the sites well and keep them dry. * DO NOT SOAK IN A TUB/POOL/etc. UNTIL ALL SURGICAL SITES ARE HEALED. DO NOT REMOVE THE GLUE UNTIL THE INCISIONS HEAL. Restrictions: * Limit yourself to terrazzo layer helper activity for the first week. * You may walk and go up and down steps. * Avoid excessive bending or movement at the level of the incisions or punctures. Risks and Possible Complications: * Infection/Drainage/Bleeding - Drainage or bleeding from the incisions/puncture site should be minimal. If you have excessive bleeding or drainage, call our office ([phone]) right away. * Pain/Numbness - You may experience some mild pain or soreness at your incision sites. You may also have some numbness around the incisions or into the insides of your thighs. Bruising is normal and should resolve within 2 weeks. * Changes in Appetite or Bowel Habits - Mostly related to anesthesia and pain medication, some patients have reported decreased appetite and/or problems with constipation. These symptoms usually improve over a few weeks. Remembering to take an [id number] stool softener, as directed, will help you to avoid constipation. Call our office and seek emergent treatment if you develop: * Fever or chills * Have a temperature greater than 101 degrees F * Any redness or purulent drainage from your incisions or punctures * Severe abdominal, chest or back pain SKIN IRRITATION: * You may experience some redness and/or swelling in the area where radiation was administered. If any skin irritation occurs, please contact your family physician. You will be receiving a call from the Vascular Surgery Nurse after you are discharged. FOLLOW UP VISIT: It is important for you to keep your follow up appointments with your medical provider. Keep any scheduled doctor appointments. ACTIVITY RECOMMENDATIONS: See Above SPECIAL CARE INSTRUCTIONS: Call your doctor if: * Temperature above 101 degrees * Pain not relieved by pain medicine ordered * There is increased drainage or redness from any incision * You have any unanswered questions or concerns. Pending Studies at Discharge: No Stand-Alone Forms: My [facility], Smoking Cessation Medications and DC Order Prescriptions: New oxycodone-acetaminophen [Percocet] 5-325 mg Tablet 1 - 2 tab PO Q4H PRN (Reason: Pain) Qty: 30 RF: 0 docusate sodium [Colace] 100 mg capsule 100 mg PO BID PRN (Reason: constipation) Qty: 60 RF: 0 Continued diphenhydramine-acetaminophen 25-500 mg tablet 2 tab PO HS RF: 0 multivitamin [Daily Multi-Vitamin] tablet 1 tab PO QAM RF: 0 calcium carbonate [Calcium 600] 600 mg calcium (1,500 mg) tablet 600 mg PO QAM RF: 0 amlodipine 10 mg tablet 10 mg PO QAM RF: 0 simvastatin 20 mg tablet 20 mg PO PM RF: 0 polyethylene glycol 3350 17 gram/dose powder 17 gm PO DAILY PRN (Reason: Constipation) RF: 0 Discharge Orders: Discharge Order (Routine); Ordered 07/15/20 Ordered By: Alyce Stark Admission Data Admit Date/Time: 07/13/20 09:50 Attending Provider: Lee Gramajo Admit Provider: Lee Gramajo Primary Care Provider: Castillo Jeffery Other Providers: Henrry Davis ; Melquiades Humphreys ; Juancarlos Armstrong ; Paxton Aguilar ; Yung Jordan ; Michel Camarillo ; Judy Hyatt
== END 2020-07-15 11:20 | disposition home or self-care (01) | DRG 269 ==
LOC: ASU 06:12 → 1E 09:50 → 3W 07-14 17:51